=== PATIENT | female | born 1985 | race Caucasian/White ===

== ENCOUNTER 2017-09-12 | Emergency (ER) | payer BC ==
--- NOTE | 2017-09-12 00:17 | EDM.PDOC ---
ED HPI GENERAL MEDICAL PROBLEM - General Chief Complaint: ENT Problem Stated Complaint: RIGHT EAR PAIN Time Seen by Provider: 09/12/17 00:16 - History of Present Illness INITIAL COMMENTS - FREE TEXT/NARRATIVE: 32-year-old female presents emergency room with irritation and discomfort in her right ear. Patient is had this for last couple days is progressively getting worse. Patient can feel a bump inside her ear canal. Patient denies any fevers chills has not had any redness or swelling around her external ear no nasal congestion. She's had a similar episode in the past and it sounds like she had a cyst inside her ear canal. Right Ear Pain Score (Numeric/FACES): 7 - Related Data Allergies Allergy/AdvReac Type Severity Reaction Status Date / Time No Known Allergies Allergy Verified 09/12/17 00:13 Home Meds: Home Meds PARoxetine [Paxil] 20 mg PO DAILY 09/12/17 [History] ED ROS ENT - Review of Systems Review Of Systems: See Below Constitutional: Reports: No Symptoms. Denies: Fever, Chills HEENT: Reports: Ear Pain. Denies: Ear Discharge, Rhinitis, Sinus Problem Respiratory: Reports: No Symptoms Cardiovascular: Reports: No Symptoms GI/Abdominal: Reports: No Symptoms ED EXAM, ENT - Physical Exam Exam: See Below Exam Limited By: No Limitations General Appearance: Alert, No Apparent Distress Eye Exam: Bilateral Eye: Normal Inspection Ears: Other (Left ear is normal right ear tympanic membrane normal near the external third of her canal posterior aspect she has what could be a comedone. No significant erythema. This is manipulated with a ear curette with a small amount of discharge. Patient noticed some improvement after this) Nose: Normal Inspection, Normal Mucousa, No Blood Mouth/Throat: Normal Inspection, Normal Gums, Normal Lips, Normal Oropharynx, Normal Teeth Head: Atraumatic, Normocephalic Neck: Normal Inspection, Supple, Non-Tender. No: Limited Range of Motion, Lymphadenopathy (L), Lymphadenopathy (R) Respiratory/Chest: No Respiratory Distress, Lungs Clear, Normal Breath Sounds Cardiovascular: Regular Rate, Rhythm, No Murmur Course - Vital Signs Last Recorded V/S: Last Vital Signs Temp 37.0 C 09/12/17 00:10 Pulse 64 09/12/17 00:10 Resp 16 09/12/17 00:10 BP 114/88 09/12/17 00:10 Pulse Ox 99 09/12/17 00:10 Departure - Departure Time of Disposition: 01:04 Disposition: Home, Self-Care 01 Clinical Impression: [place], Irritation of right ear - Discharge Information Referrals: Linda Saldaña PA-C [Primary Care Provider] - Forms: ED Department Discharge Additional Instructions: Return to the emergency room with any questions problems worsening symptoms. Follow-up with your regular provider at the end of this week if needed. Use hydrogen peroxide over this area 4 times a day until better. Avoid anything that causes irritation to this area
== END 2017-09-12 01:10 | disposition home or self-care (01) ==
LOC: JD.ED
DX: L70.0 Acne vulgaris (principal)
CPT/HCPCS: 99282